=== PATIENT | female | born 1945 ===

== ENCOUNTER 2022-04-25 17:13 | Inpatient (IN) | payer OTHER ==
[~2022-04-25] VITALS: Ht 152.4 cm; Wt 95.3 kg
[2022-04-25] MEDS ORDERED: predniSONE 10 MG TABLET PO ONE (17:30)
[2022-04-25] MEDS ORDERED: IPRATROPIUM BROMIDE 0.5 MG/2.5 ML NEBU NEB ONE (17:30)
[2022-04-25] MEDS ORDERED: ALBUTEROL SULFATE 2.5 MG/3 ML NEBU NEB ONE ×2 (17:30→20:30)
[2022-04-25] MEDS ORDERED: predniSONE 20 MG TABLET PO ONE (17:45)
[2022-04-25] MEDS ORDERED: IPRATROPIUM BROMIDE 0.5 MG/2.5 ML NEBU ONE (17:47)
[2022-04-25] MEDS ORDERED: ALBUTEROL SULFATE 2.5 MG/3 ML NEBU ONE ×2 (17:47→20:47)
[2022-04-25 18:18] LABS: HEMATOCRIT 38.9 % (31.2-41.9); MEAN CORPUSCULAR HEMOGLOBIN 29.5 uug (24.7-32.8); MEAN CORPUSCULAR VOLUME 88.6 fL (75.5-95.3); PLATELET COUNT (AUTO) 213 K/uL (179-408)
[2022-04-25] MEDS ORDERED: CEFTRIAXONE 1 G in IV DEXTROSE 5% 50 ML IV ONE (18:30)
[2022-04-25] MEDS ORDERED: AZITHROMYCIN IV 500 MG in IV DEXTROSE 5% 250 ML IV ONE (18:30)
[2022-04-25] MEDS ORDERED: predniSONE 20 MG TABLET ONE (18:30)
[2022-04-25 18:38] LABS: ALANINE AMINOTRANSFERASE 20 U/L (14-59); ALKALINE PHOSPHATASE 102 U/L (50-136); ASPARTATE AMINOTRANSFERASE 18 U/L (15-37); BILIRUBIN,DIRECT 0.1 mg/dL (0.0-0.2); BILIRUBIN,TOTAL 0.4 mg/dL (0.2-1.0); CARBON DIOXIDE 27 mmol/L (21-32); CHLORIDE 99 mmol/L (98-107); CREATININE 0.6 mg/dL (0.6-1.3); GLUCOSE 143 mg/dL (74-106); POTASSIUM 3.8 mmol/L (3.5-5.1); TOTAL PROTEIN, SERUM 7.7 g/dL (6.4-8.2); UREA NITROGEN, BLOOD 13 mg/dL (7-18)
--- NOTE | 2022-04-25 19:10 | NUR ---
Received report from Sabi RATLIFF.
[2022-04-25] MEDS ORDERED: FUROSEMIDE 40 MG/4 ML VIAL IV ONE (19:15)
--- NOTE | 2022-04-25 19:18 | NUR ---
sbar to elizabeth RATLIFF
--- NOTE | 2022-04-25 19:25 | NUR ---
Called [facility] [address] Broderick's request. The phone is ring off the hook, no one is picking up.
[2022-04-25] MEDS ORDERED: CEFTRIAXONE /D5W 50ML IVPB **ER PYXIS IV ONE (20:26)
[2022-04-25] MEDS ORDERED: MAGNESIUM SULFATE/D5W 200 ML ONE (20:27)
[2022-04-25] MEDS ORDERED: AZITHROMYCIN 500MG/ D5W 250ML IVPB **ER PYXIS ONLY IV ONE (20:27)
[2022-04-25] MEDS ORDERED: MAGNESIUM HYDROXIDE 30 ML LIQUID UDC PO PRN (20:30)
[2022-04-25] MEDS ORDERED: REMEDY ESSENTIAL ZINC PASTE 113 GM TP PRN (20:30)
[2022-04-25] MEDS ORDERED: CLONIDINE HCL 0.1 MG TABLET PO PRN (20:30)
[2022-04-25] MEDS ORDERED: ONDANSETRON 4 MG/2 ML VIAL IV PRN (20:30)
[2022-04-25] MEDS: FUROSEMIDE 40 MG/4 ML VIAL IV SCH (21:00)
[2022-04-25] MEDS ORDERED: MULT-1045 PO (21:06)
[2022-04-25] MEDS ORDERED: RIVA20TA PO (21:06)
[2022-04-25] MEDS ORDERED: DILT-3 PO (21:06)
[2022-04-25] MEDS ORDERED: DIGO250T PO (21:06)
[2022-04-25] MEDS ORDERED: SOLI10TA2 PO (21:06)
[2022-04-25] MEDS ORDERED: MONT10TA33 PO (21:06)
[2022-04-25] MEDS ORDERED: MIRA50TA PO (21:06)
[2022-04-25] MEDS ORDERED: AMIL5TAB9 PO (21:06)
[2022-04-25] MEDS ORDERED: VORT5TAB PO (21:06)
--- NOTE | 2022-04-25 23:01 | NUR ---
Informed ER nurse to give Mg IVPB as ordered by Dr Broderick at [id number].
[2022-04-25] MEDS: MAGNESIUM SULFATE/D5W 100 ML IV SCH ×2 (23:10→23:55)
--- NOTE | 2022-04-25 23:38 | NUR ---
Report given to Nazario RATLIFF.
--- NOTE | 2022-04-26 00:30 | NUR ---
Pt. admitted to [facility] 316, under care of Dr. Rosales. Belongs List completed Nazario RN aware of patient's arrival to unit.
--- NOTE | 2022-04-26 00:30 | NUR ---
Pt. admitted to [facility] 316, under care of Dr. Anderson List completed Nazario RN aware of patient's arrival to unit.
[2022-04-26 01:11] VITALS: BP 132/78
[2022-04-26] MEDS: ACETAMINOPHEN 325 MG TABLET PO PRN ×4 (01:19→22:24)
[2022-04-26] MEDS: methylPREDNISolone SOD SUCC 40 MG/ML VIAL IV SCH ×4 (02:07→22:17)
[2022-04-26] MEDS: IPRATROPIUM BROMIDE 0.5 MG/2.5 ML NEBU NEB PRN ×2 (02:29→10:40)
[2022-04-26] MEDS: LEVALBUTEROL HCL 1.25 MG/0.5 ML NEB NEB PRN ×2 (02:29→10:40)
[2022-04-26 04:55] VITALS: BP 147/87
[2022-04-26 06:49] LABS: HEMATOCRIT 36.8 % (31.2-41.9); MEAN CORPUSCULAR HEMOGLOBIN 29.7 uug (24.7-32.8); MEAN CORPUSCULAR VOLUME 87.3 fL (75.5-95.3); PLATELET COUNT (AUTO) 227 K/uL (179-408)
[2022-04-26 07:03] LABS: CREATININE 0.7 mg/dL (0.6-1.3); MAGNESIUM 2.1 mg/dL (1.8-2.4); PHOSPHOROUS 3.5 mg/dL (2.5-4.9)
--- NOTE | 2022-04-26 08:00 | NUR ---
Awake, alert, oriented x 4, sitting on the chair. O2 at 3L/NC. SOB on exertion. Reassured.
[2022-04-26] MEDS ORDERED: DIGOXIN 250 MCG TABLET PO SCH (09:45)
[2022-04-26] MEDS: DILTIAZEM HCL CD 240 MG CAP.SR.24H PO SCH (09:57)
[2022-04-26] MEDS: FUROSEMIDE 40 MG/4 ML VIAL IV SCH (09:57)
--- NOTE | 2022-04-26 10:40 | NUR ---
With shortness of breath, with reports of chest pressure. HHN given. EKG done. Reassured to relieve anxiety
[2022-04-26 11:34] VITALS: BP 128/62
[2022-04-26] MEDS ORDERED: VORT10TA PO (15:56)
[2022-04-26 16:00] VITALS: BP 125/59
--- NOTE | 2022-04-26 16:30 | NUR ---
Patient's own medication sent to pharmacy
--- NOTE | 2022-04-26 18:00 | NUR ---
Repositioned in bed comfortably. O2 at 3L/NC with O2 sat of 91%. Call light with in reach. FWW and commode at bedside
[2022-04-26] MEDS: RIVAROXABAN 10 MG TABLET PO SCH (18:33)
[2022-04-26] MEDS: MONTELUKAST SODIUM 10 MG TABLET PO SCH (18:33)
[2022-04-26 20:00] VITALS: BP 159/84
[2022-04-26] MEDS: FUROSEMIDE 20 MG/2 ML VIAL IV SCH (20:51)
[2022-04-26] MEDS: MELATONIN 3 MG TABLET PO PRN (20:51)
[2022-04-27] VITALS: BP 137/82
[2022-04-27 04:00] VITALS: BP 129/70
[2022-04-27] MEDS: methylPREDNISolone SOD SUCC 40 MG/ML VIAL IV SCH ×3 (06:00→21:17)
[2022-04-27] MEDS: LEVALBUTEROL HCL 1.25 MG/0.5 ML NEB NEB PRN ×2 (06:11→13:31)
[2022-04-27] MEDS: IPRATROPIUM BROMIDE 0.5 MG/2.5 ML NEBU NEB PRN ×2 (06:11→13:31)
--- NOTE | 2022-04-27 06:45 | NUR ---
Patient slept well, easily awaken. No c/o chest pain, no noted resp distress. HOB kept elevated to patient's comfort. Ambulate to the BR with FWW. Needs assessed and attended to. Call light within easy reach.
[2022-04-27 07:10] LABS: HEMATOCRIT 38.4 % (31.2-41.9); MEAN CORPUSCULAR HEMOGLOBIN 29.8 uug (24.7-32.8); MEAN CORPUSCULAR VOLUME 87.1 fL (75.5-95.3); PLATELET COUNT (AUTO) 269 K/uL (179-408)
[2022-04-27 07:20] LABS: CARBON DIOXIDE 34 mmol/L (21-32); CHLORIDE 95 mmol/L (98-107); CREATININE 0.8 mg/dL (0.6-1.3); GLUCOSE 144 mg/dL (74-106); POTASSIUM 4.5 mmol/L (3.5-5.1); UREA NITROGEN, BLOOD 24 mg/dL (7-18)
--- NOTE | 2022-04-27 07:30 | NUR ---
Sleeping, appears comfortable. O2 at 3L/NC. Tele Afib
[2022-04-27] MEDS ORDERED: VORTIOXETINE HYDROBROMIDE PO SCH (09:00)
[2022-04-27] MEDS ORDERED: Medication Not On Formulary EA (Rivaroxaban (Xarelto) 1 TAB) PO SCH (09:00)
[2022-04-27] MEDS ORDERED: DIGOXIN 250 MCG TABLET PO SCH (09:00)
[2022-04-27] MEDS ORDERED: Medication Not On Formulary EA (Multivitamin (Multi-Vitamin Daily) 1 TAB) PO SCH (09:00)
[2022-04-27] MEDS ORDERED: DILTIAZEM HCL CD 240 MG CAP.SR.24H PO SCH (09:00)
[2022-04-27] MEDS: FUROSEMIDE 20 MG/2 ML VIAL IV SCH (09:37)
[2022-04-27] MEDS: DILTIAZEM HCL CD 240 MG CAP.SR.24H PO SCH (09:44)
[2022-04-27] MEDS: DIGOXIN 250 MCG TABLET PO SCH (09:45)
[2022-04-27] MEDS: AMILORIDE 5MG TABLET PO SCH (09:46)
[2022-04-27] MEDS: TRINTELLIX 10MG TABLET PO SCH (09:46)
[2022-04-27] MEDS: MULTIVITAMINS,THERAPEUTIC TABLET PO SCH (09:48)
[2022-04-27] MEDS: MYRBETRIQ 50MG TABLET PO SCH (10:08)
[2022-04-27] MEDS: SOLIFENACIN 10 MG PO SCH (10:08)
[2022-04-27 13:00] VITALS: BP 132/67
[2022-04-27] MEDS: LACTULOSE 20 G/30 ML LIQUID UDC PO PRN (13:56)
--- NOTE | 2022-04-27 14:00 | NUR ---
No BM, Lactulose given as ordered
[2022-04-27 15:55] VITALS: BP 105/51
--- NOTE | 2022-04-27 16:00 | NUR ---
Bed bath given, comfortable after
[2022-04-27] MEDS: BISACODYL 10 MG SUPP.RECT RC PRN (16:44)
--- NOTE | 2022-04-27 16:45 | NUR ---
Still with no BM, Dulcolax suppository given
[2022-04-27] MEDS: MONTELUKAST SODIUM 10 MG TABLET PO SCH (17:49)
[2022-04-27] MEDS: RIVAROXABAN 10 MG TABLET PO SCH (17:50)
--- NOTE | 2022-04-27 18:57 | NUR ---
With BM to small formed stool. Reports of pain, Tylenol po given. Endorsed for further care
--- NOTE | 2022-04-27 19:45 | NUR ---
Received patient found sitting on the side of the bed comfortably. AAOx4. A-fibb on tele monitor. On 3L NC, O2 sat 93%. Right FA IV access is intact and patent. Safety and comfort measures enforced.
[2022-04-27] MEDS: MELATONIN 3 MG TABLET PO PRN (21:32)
[2022-04-27 22:43] VITALS: BP 123/67
[2022-04-28 00:15] VITALS: BP 106/51
[2022-04-28] MEDS: ACETAMINOPHEN 325 MG TABLET PO PRN (01:46)
[2022-04-28 04:21] VITALS: BP 140/77
[2022-04-28] MEDS: methylPREDNISolone SOD SUCC 40 MG/ML VIAL IV SCH ×3 (05:21→21:00)
--- NOTE | 2022-04-28 05:50 | NUR ---
Patient slept intermittently throughout the night. No complaints of pain noted at this time. A-fibb controlled on tele monitor, HR 74. Safety and comfort measures maintained.
--- NOTE | 2022-04-28 06:10 | NUR ---
Patient tolerated ABGs collection procedure without any noted complications. No complaints noted by patient. Will endorse results to day shift.
[2022-04-28 06:11] LABS: ABG HCO3 28.7 mmol/L; ABG PH 7.484 (7.350-7.450); ABG PO2 51.3 mmHg (75.0-100.0); ABG SITE LEFT RADIAL; ABG TOTAL HEMOGLOBIN 13.8 G/dL (12.0-16.0); COHb 0.9 % (0.5-1.5); MetHb 0.3 % (0.0-1.5); O2Hb 89.1 % (94.0-97.0); VENT MODE Nasal Cannula
[2022-04-28 07:16] LABS: HEMATOCRIT 39.4 % (31.2-41.9); MEAN CORPUSCULAR VOLUME 87.5 fL (75.5-95.3); PLATELET COUNT (AUTO) 300 K/uL (179-408)
--- NOTE | 2022-04-28 07:33 | NUR ---
RECEIVED PATIENT IN BED AWAKE ALERT AND ORIENTED DENIES PAIN OR DISCOMFORTS AT THIS TIME ON O2 AT 3L/M BY NASAL CANULA WITH NO SOB AT THIS TIME CALL LIGHTS AND PERSONAL BELONGINGS ARE WITHIN EASY REACH AT THIS TIME WILL CONTINUE TO OBSERVE AND PROVIDE COMFORT.
[2022-04-28 07:42] LABS: THYROID STIMULATING HORMONE 0.519 mIU/mL (0.358-3.740)
[2022-04-28] MEDS: SOLIFENACIN 10 MG PO SCH (08:34)
[2022-04-28] MEDS: TRINTELLIX 10MG TABLET PO SCH (08:34)
[2022-04-28] MEDS: MYRBETRIQ 50MG TABLET PO SCH (08:34)
[2022-04-28] MEDS: AMILORIDE 5MG TABLET PO SCH (08:34)
[2022-04-28] MEDS: MULTIVITAMINS,THERAPEUTIC TABLET PO SCH (08:34)
[2022-04-28] MEDS: DILTIAZEM HCL CD 240 MG CAP.SR.24H PO SCH (08:35)
[2022-04-28] MEDS: DIGOXIN 250 MCG TABLET PO SCH (08:35)
[2022-04-28 08:47] LABS: BILIRUBIN,TOTAL 0.3 mg/dL (0.2-1.0); CREATININE 0.8 mg/dL (0.6-1.3); MAGNESIUM 2.3 mg/dL (1.8-2.4); PHOSPHOROUS 3.8 mg/dL (2.5-4.9); POTASSIUM 4.3 mmol/L (3.5-5.1); TOTAL PROTEIN, SERUM 7.3 g/dL (6.4-8.2)
[2022-04-28] MEDS: LEVALBUTEROL HCL 1.25 MG/0.5 ML NEB NEB PRN (09:16)
[2022-04-28] MEDS: IPRATROPIUM BROMIDE 0.5 MG/2.5 ML NEBU NEB PRN ×2 (09:17→20:05)
[2022-04-28] MEDS: LACTULOSE 20 G/30 ML LIQUID UDC PO PRN (11:11)
--- NOTE | 2022-04-28 11:11 | NUR ---
STILL CONSTIPATED LACTULOSE GIVEN ORDERED AWAITING FOR RESULTS.
--- NOTE | 2022-04-28 11:36 | NUR ---
PATIENT REQUESTING FOR COUGH MEDS AND ATB MD NOTIFIED WITH NEW ORDERS AND NOTED.
[2022-04-28] MEDS: GUAIFENESIN/DEXTROMETHORPHAN 5 ML UDC PO PRN ×3 (12:00→23:07)
[2022-04-28] MEDS ORDERED: levoFLOXacin 500 MG/D5W 500 MG in PREMIXED 1 EACH IV SCH (12:00)
--- NOTE | 2022-04-28 12:00 | NUR ---
IV HEPLOCK INFILTERATED WHILE HER LEVAQUIN ATB IS INFUSING SHE IS A HARD STICK MULTIPLE ATTEMPTS TO RESTART FAILED MD AWARE WITH ORDER TO INSERT A MIDLINE CHICKEN HANDLER NOTIFIED MID LINE RN WILL BE HERE SOON POSSIBLE.
[2022-04-28] MEDS ORDERED: LEVALBUTEROL HCL 1.25 MG/0.5 ML NEB NEB PRN (12:15)
[2022-04-28 12:16] VITALS: BP 111/65
--- NOTE | 2022-04-28 14:45 | NUR ---
DULCOLAX SUPPOSITORY GIVEN ORDERED AWAITING FOR RESULTS
[2022-04-28] MEDS: BISACODYL 10 MG SUPP.RECT RC PRN (14:46)
--- NOTE | 2022-04-28 14:50 | NUR ---
AWAITING FOR THE MIDLINE NURSE PER THE PL[employer] SAF[employer] ENGINEER SHE SHOULD BE HERE SOON.
--- NOTE | 2022-04-28 16:00 | NUR ---
MID ;LINE INSERTED TO HER RIGHT UPPER ARM AND ANTIBIOTICS ADMINISTERED ORDERED.
[2022-04-28 16:20] VITALS: BP 122/44
[2022-04-28] MEDS: MONTELUKAST SODIUM 10 MG TABLET PO SCH (17:07)
[2022-04-28] MEDS: RIVAROXABAN 10 MG TABLET PO SCH (17:08)
--- NOTE | 2022-04-28 17:50 | NUR ---
PATIENT STATED THAT SHE HAD A LARGE BOWEL MOVEMENT AFTER THE DULCOLAX SUPPOSITORY.
--- NOTE | 2022-04-28 18:36 | NUR ---
DR FAN HERE SEEN PATIENT WITH NEW ORDERS AND NOTED.
--- NOTE | 2022-04-28 19:40 | NUR ---
First contact. Pt talking on the phone and ask that I come back later to talk to her. Pt denies any pain.
--- NOTE | 2022-04-28 19:55 | NUR ---
Pt hit call light 3 times back to back requesting a breathing treatment. Entered patient's room and I let her know that we have requested the respiratory therapist and that she will have to wait. Pt starts smiling and says "Bare with me." Pt has call light in reach, personal belongings within reach. Bed in lowest position and side rails upx3. Instructed to call if she needs anything else.
[2022-04-28 20:00] VITALS: BP 132/57
[2022-04-28] MEDS: MELATONIN 3 MG TABLET PO PRN (21:00)
[2022-04-29] VITALS: BP 129/73
[2022-04-29] MEDS: ACETAMINOPHEN 325 MG TABLET PO PRN (01:35)
[2022-04-29 04:00] VITALS: BP 153/92
[2022-04-29 06:20] VITALS: BP 136/80
[2022-04-29] MEDS: methylPREDNISolone SOD SUCC 40 MG/ML VIAL IV SCH ×3 (06:30→21:03)
[2022-04-29 06:51] LABS: HEMATOCRIT 38.9 % (31.2-41.9); MEAN CORPUSCULAR HEMOGLOBIN 29.2 uug (24.7-32.8); MEAN CORPUSCULAR VOLUME 86.9 fL (75.5-95.3); PLATELET COUNT (AUTO) 307 K/uL (179-408)
[2022-04-29 07:01] LABS: CREATININE 0.9 mg/dL (0.6-1.3); MAGNESIUM 2.2 mg/dL (1.8-2.4); PHOSPHOROUS 2.9 mg/dL (2.5-4.9); POTASSIUM 4.7 mmol/L (3.5-5.1)
--- NOTE | 2022-04-29 07:25 | NUR ---
RECEIVED PATIENT IN BED AWAKE ALERT AND ORIENTED REMAINS ON O2 AT 2L/M BY NASAL CANULA WITH NO S/S OF SHORTNESS OF BREATH AT THIS TIME NO ADVERSE OR ALLERGIC REACTIONS FROM ATB ORDERED MID LINE RIGHT UPPER ARM INTACT CALL LIGHTS AND PERSONAL BELONGINGS ARE WITHIN EASY REACH AT THIS TIME WILL CONTINUE TO OBSERVE.
[2022-04-29] MEDS: MYRBETRIQ 50MG TABLET PO SCH (08:36)
[2022-04-29] MEDS: SOLIFENACIN 10 MG PO SCH (08:36)
[2022-04-29] MEDS: AMILORIDE 5MG TABLET PO SCH (08:36)
[2022-04-29] MEDS: TRINTELLIX 10MG TABLET PO SCH (08:36)
[2022-04-29] MEDS: DIGOXIN 250 MCG TABLET PO SCH (08:37)
[2022-04-29] MEDS: MULTIVITAMINS,THERAPEUTIC TABLET PO SCH (08:37)
[2022-04-29] MEDS: DILTIAZEM HCL CD 240 MG CAP.SR.24H PO SCH (08:38)
[2022-04-29 11:31] VITALS: BP 126/69
[2022-04-29] MEDS: levoFLOXacin 500 MG/D5W 500 MG in PREMIXED 1 EACH IV SCH (11:34)
[2022-04-29] MEDS ORDERED: LEVOFLOXACIN/D5W 250 MG in PREMIX 1 EA IV SCH (12:00)
--- NOTE | 2022-04-29 12:14 | NUR ---
PATIENT SEEN AND EXAMINED BY DR HOLMAN WITH NEW ORDERS AND NOTED
[2022-04-29] MEDS: IPRATROPIUM BROMIDE 0.5 MG/2.5 ML NEBU NEB PRN ×2 (13:44→22:50)
[2022-04-29] MEDS: ALBUTEROL SULFATE 1.25 MG/3 ML NEBU NEB PRN ×2 (13:44→22:50)
[2022-04-29 16:47] VITALS: BP 150/84
[2022-04-29] MEDS: MONTELUKAST SODIUM 10 MG TABLET PO SCH (17:08)
[2022-04-29] MEDS: BISACODYL 10 MG SUPP.RECT RC PRN (17:08)
[2022-04-29] MEDS: GUAIFENESIN/DEXTROMETHORPHAN 5 ML UDC PO PRN (17:08)
--- NOTE | 2022-04-29 17:08 | NUR ---
PATIENT REQUESTED FOR DULCOLAX SUPPOSITORY AND COUGH MEDICATIONS GIVEN ORDERED.
[2022-04-29] MEDS: RIVAROXABAN 10 MG TABLET PO SCH (17:09)
--- NOTE | 2022-04-29 18:23 | NUR ---
RESTING IN HER ROOM STATED THAT SHE FEELS SOMEWHAT BETTER TODAY WAS SEEN BY DR MELGAR WITH NO NEW ORDERS AT THIS TIME.
[2022-04-29 20:00] VITALS: BP 114/75
--- NOTE | 2022-04-29 20:00 | NUR ---
Received patient sitting on the side of the bed. AAOx4. In no apparent distress. Denies any pain or SOB. On O2 at 3LPM via NC in place. With occasional productive cough and able to expectorate whitish phlegm. Controlled A. Fib on tele with PVC, Hr of 81/min. Midline on right upper arm intact and patent. Needs assessed and attended to. Safety measure initiated and call light within reached. Addendum: 04/29/22 at 2053 by JT MONDRAGON RN Controlled A. fib on tele with HR of 81/min.
[2022-04-29] MEDS: GUAIFENESIN LA 600 MG TABLET.SA PO SCH (20:38)
[2022-04-29] MEDS ORDERED: ATORVASTATIN 10 MG TABLET PO SCH (21:00)
--- NOTE | 2022-04-29 22:27 | NUR ---
Obtained order from Dr Leigh to discontinue shared services representative and carried out.
[2022-04-30] VITALS: BP 114/70
[2022-04-30 04:00] VITALS: BP 107/68
[2022-04-30] MEDS: methylPREDNISolone SOD SUCC 40 MG/ML VIAL IV SCH ×2 (06:12→20:14)
[2022-04-30] MEDS: IPRATROPIUM BROMIDE 0.5 MG/2.5 ML NEBU NEB PRN (07:54)
[2022-04-30] MEDS: ALBUTEROL SULFATE 1.25 MG/3 ML NEBU NEB PRN (07:54)
[2022-04-30] MEDS: DILTIAZEM HCL CD 240 MG CAP.SR.24H PO SCH (08:07)
[2022-04-30] MEDS: GUAIFENESIN LA 600 MG TABLET.SA PO SCH ×2 (08:07→20:01)
[2022-04-30] MEDS: MULTIVITAMINS,THERAPEUTIC TABLET PO SCH (08:07)
[2022-04-30] MEDS: DIGOXIN 250 MCG TABLET PO SCH (08:08)
[2022-04-30] MEDS: AMILORIDE 5MG TABLET PO SCH (08:09)
[2022-04-30] MEDS: SOLIFENACIN 10 MG PO SCH (08:09)
[2022-04-30] MEDS: TRINTELLIX 10MG TABLET PO SCH (08:10)
[2022-04-30] MEDS: MYRBETRIQ 50MG TABLET PO SCH (08:10)
--- NOTE | 2022-04-30 09:52 | NUR ---
Patient remains AAOx4. In no acute distress. Denies any pain or SOB. O2 at 3LPM via NC in place. Needs attended to and met. Safety measure maintained and call light within reached.
[2022-04-30] MEDS ORDERED: MELA3TAB41 PO (11:03)
[2022-04-30] MEDS ORDERED: CLON0.1T PO (11:03)
[2022-04-30] MEDS ORDERED: ALBU1.25 NEB (11:03)
[2022-04-30] MEDS ORDERED: ACID1TAB4 PO (11:03)
[2022-04-30] MEDS ORDERED: LEVO500T90 PO (11:03)
[2022-04-30] MEDS ORDERED: IPRA0.2S6 NEB (11:03)
[2022-04-30] MEDS ORDERED: LACT10SO7 PO (11:03)
[2022-04-30] MEDS ORDERED: METH4TAB3 PO (11:03)
[2022-04-30] MEDS ORDERED: GUAI5SYR PO (11:03)
[2022-04-30] MEDS ORDERED: BISA10SU12 RC (11:03)
[2022-04-30] MEDS ORDERED: ACET325T53 PO (11:03)
[2022-04-30] MEDS ORDERED: GUAI600T53 PO (11:03)
[2022-04-30 11:19] VITALS: BP 132/62
[2022-04-30] MEDS: levoFLOXacin 500 MG/D5W 500 MG in PREMIXED 1 EACH IV SCH (12:27)
[2022-04-30 16:03] VITALS: BP 144/61
[2022-04-30] MEDS: RIVAROXABAN 10 MG TABLET PO SCH (17:52)
[2022-04-30] MEDS: MONTELUKAST SODIUM 10 MG TABLET PO SCH (17:52)
[2022-04-30 20:27] VITALS: BP 125/80
[2022-05-01 04:00] VITALS: BP 150/80
[2022-05-01] MEDS: GUAIFENESIN/DEXTROMETHORPHAN 5 ML UDC PO PRN ×2 (04:07→22:27)
[2022-05-01 06:37] LABS: HEMATOCRIT 41.1 % (31.2-41.9); MEAN CORPUSCULAR HEMOGLOBIN 28.8 uug (24.7-32.8); MEAN CORPUSCULAR VOLUME 87.2 fL (75.5-95.3); PLATELET COUNT (AUTO) 339 K/uL (179-408)
[2022-05-01 07:04] LABS: CREATININE 0.8 mg/dL (0.6-1.3); MAGNESIUM 2.2 mg/dL (1.8-2.4); PHOSPHOROUS 3.2 mg/dL (2.5-4.9); POTASSIUM 4.7 mmol/L (3.5-5.1)
[2022-05-01] MEDS: methylPREDNISolone SOD SUCC 40 MG/ML VIAL IV SCH (08:27)
[2022-05-01] MEDS: DILTIAZEM HCL CD 240 MG CAP.SR.24H PO SCH (08:32)
[2022-05-01] MEDS: SOLIFENACIN 10 MG PO SCH (08:33)
[2022-05-01] MEDS: GUAIFENESIN LA 600 MG TABLET.SA PO SCH ×2 (08:33→20:23)
[2022-05-01] MEDS: AMILORIDE 5MG TABLET PO SCH (08:33)
[2022-05-01] MEDS: MULTIVITAMINS,THERAPEUTIC TABLET PO SCH (08:33)
[2022-05-01] MEDS: DIGOXIN 250 MCG TABLET PO SCH (08:33)
[2022-05-01] MEDS: TRINTELLIX 10MG TABLET PO SCH (08:33)
[2022-05-01] MEDS: MYRBETRIQ 50MG TABLET PO SCH (08:34)
[2022-05-01 11:58] VITALS: BP 114/71
[2022-05-01] MEDS: levoFLOXacin 500 MG/D5W 500 MG in PREMIXED 1 EACH IV SCH (12:22)
[2022-05-01] MEDS: IPRATROPIUM BROMIDE 0.5 MG/2.5 ML NEBU NEB PRN ×2 (14:47→20:05)
[2022-05-01] MEDS: ALBUTEROL SULFATE 1.25 MG/3 ML NEBU NEB PRN ×2 (14:47→20:05)
[2022-05-01 15:40] VITALS: BP_SYST 122
[2022-05-01] MEDS: RIVAROXABAN 10 MG TABLET PO SCH (17:17)
[2022-05-01] MEDS: MONTELUKAST SODIUM 10 MG TABLET PO SCH (17:18)
[2022-05-01] MEDS: predniSONE 20 MG TABLET PO SCH (17:18)
[2022-05-01] MEDS ORDERED: SIMETHICONE 80 MG TAB.CHEW PO PRN (18:00)
[2022-05-01 20:25] VITALS: BP 130/64
[2022-05-01] MEDS: BISACODYL 10 MG SUPP.RECT RC PRN (21:31)
--- NOTE | 2022-05-01 22:09 | NUR ---
AAOx4. O2 at 1 LPM. No SOB noted. No BM for 3 days. Administered suppository as ordered. All needs attended. Will continue to monitor.
[2022-05-02] MEDS: MELATONIN 3 MG TABLET PO PRN ×2 (00:43→21:10)
[2022-05-02 04:00] VITALS: BP 135/60
[2022-05-02] MEDS: MULTIVITAMINS,THERAPEUTIC TABLET PO SCH (08:22)
[2022-05-02] MEDS: DILTIAZEM HCL CD 240 MG CAP.SR.24H PO SCH (08:23)
[2022-05-02] MEDS: MYRBETRIQ 50MG TABLET PO SCH (08:23)
[2022-05-02] MEDS: GUAIFENESIN LA 600 MG TABLET.SA PO SCH ×2 (08:23→21:09)
[2022-05-02] MEDS: SOLIFENACIN 10 MG PO SCH (08:23)
[2022-05-02] MEDS: predniSONE 20 MG TABLET PO SCH ×2 (08:23→17:19)
[2022-05-02] MEDS: TRINTELLIX 10MG TABLET PO SCH (08:23)
[2022-05-02] MEDS: DIGOXIN 250 MCG TABLET PO SCH (08:23)
[2022-05-02] MEDS: AMILORIDE 5MG TABLET PO SCH (08:24)
[2022-05-02] MEDS: IPRATROPIUM BROMIDE 0.5 MG/2.5 ML NEBU NEB PRN ×3 (09:50→20:52)
[2022-05-02] MEDS: ALBUTEROL SULFATE 1.25 MG/3 ML NEBU NEB PRN ×3 (09:50→20:52)
[2022-05-02] MEDS: levoFLOXacin 500 MG/D5W 500 MG in PREMIXED 1 EACH IV SCH (11:17)
[2022-05-02 11:32] VITALS: BP 134/71
[2022-05-02 16:34] VITALS: BP 125/65
[2022-05-02] MEDS: RIVAROXABAN 10 MG TABLET PO SCH (17:18)
[2022-05-02] MEDS: MONTELUKAST SODIUM 10 MG TABLET PO SCH (17:18)
[2022-05-02 20:00] VITALS: BP 135/64
[2022-05-02] MEDS: GUAIFENESIN/DEXTROMETHORPHAN 5 ML UDC PO PRN (21:29)
[2022-05-03 04:00] VITALS: BP 110/75
[2022-05-03] MEDS: MYRBETRIQ 50MG TABLET PO SCH (08:07)
[2022-05-03] MEDS: AMILORIDE 5MG TABLET PO SCH (08:08)
[2022-05-03] MEDS: DILTIAZEM HCL CD 240 MG CAP.SR.24H PO SCH (08:08)
[2022-05-03] MEDS: SOLIFENACIN 10 MG PO SCH (08:08)
[2022-05-03] MEDS: GUAIFENESIN LA 600 MG TABLET.SA PO SCH (08:08)
[2022-05-03] MEDS: DIGOXIN 250 MCG TABLET PO SCH (08:08)
[2022-05-03] MEDS: MULTIVITAMINS,THERAPEUTIC TABLET PO SCH (08:08)
[2022-05-03] MEDS: TRINTELLIX 10MG TABLET PO SCH (08:08)
[2022-05-03] MEDS: predniSONE 20 MG TABLET PO SCH ×2 (08:09→17:16)
[2022-05-03] MEDS: IPRATROPIUM BROMIDE 0.5 MG/2.5 ML NEBU NEB PRN ×2 (09:37→15:31)
[2022-05-03] MEDS: ALBUTEROL SULFATE 1.25 MG/3 ML NEBU NEB PRN ×2 (09:37→15:31)
[2022-05-03] MEDS: levoFLOXacin 500 MG/D5W 500 MG in PREMIXED 1 EACH IV SCH (11:05)
[2022-05-03 11:40] VITALS: BP 114/70
[2022-05-03] MEDS ORDERED: METH4TAB3 PO (13:50)
[2022-05-03] MEDS ORDERED: GUAI600T53 PO (13:50)
[2022-05-03 15:25] VITALS: BP 112/86
[2022-05-03] MEDS: MONTELUKAST SODIUM 10 MG TABLET PO SCH (17:15)
[2022-05-03] MEDS: RIVAROXABAN 10 MG TABLET PO SCH (17:16)
--- NOTE | 2022-05-03 18:41 | NUR ---
dc orders received noted and carried out.dc midline per md orders.dc instruction and education given to the pt .pt left the facility via private car in stable condition
== END 2022-05-03 18:46 | disposition home health service (06) | DRG 291 ==
LOC: ER 17:37 → TELE3 04-26 00:02 → MEDSURG3 04-29 22:23
PROVIDERS: ADMIT Internal Medicine; ATTEND Internal Medicine
PROC: 05H533Z Insertion of Infusion Device into Right Subclavian Vein, Percutaneous Approach (ICD-10-PCS; principal; 2022-04-28)
PROC: B546ZZA Ultrasonography of Right Subclavian Vein, Guidance (ICD-10-PCS; 2022-04-28)
DX: I11.0 Hypertensive heart disease with heart failure (principal); I50.31 Acute diastolic (congestive) heart failure; J96.21 Acute and chronic respiratory failure with hypoxia; J44.1 Chronic obstructive pulmonary disease with (acute) exacerbation; J45.901 Unspecified asthma with (acute) exacerbation; Z68.41 Body mass index [BMI] 40.0-44.9, adult; I48.20 Chronic atrial fibrillation, unspecified; T85.528A Displacement of other gastrointestinal prosthetic devices, implants and grafts, initial encounter; Z20.822 Contact with and (suspected) exposure to COVID-19; F32.9 Major depressive disorder, single episode, unspecified; G47.33 Obstructive sleep apnea (adult) (pediatric); Z87.891 Personal history of nicotine dependence; Z85.6 Personal history of leukemia; E66.01 Morbid (severe) obesity due to excess calories; I35.8 Other nonrheumatic aortic valve disorders; K56.41 Fecal impaction; Z79.01 Long term (current) use of anticoagulants; Y83.8 Other surgical procedures as the cause of abnormal reaction of the patient, or of later complication, without mention of misadventure at the time of the procedure; Y92.89 Other specified places as the place of occurrence of the external cause
CPT/HCPCS: 36415; 36600; 71045; 74018; 83605; 83735; 84100; 84443; 84484; 85025; 87040; 87400; 93005; 93307; 94640; A4663; A6213; G0378; J0456; J0696; J1940; J1956; J2405; J2920; J3475; J3590; J7512